=== PATIENT | female | born 1960 | race Caucasian/White ===

== ENCOUNTER 2019-06-05 17:43 | Emergency (ER) | payer BC ==
[~2019-06-05] VITALS: Ht 152.4 cm; Wt 59.1 kg
[~2019-06-05 17:43] MED LIST: NAPR375T PO
[2019-06-05 18:28] LABS: BASOPHILS # (AUTO) 0.1 X10'3 (0-0.2); BASOPHILS % (AUTO) 0.3 % (0-1); EOSINOPHILS # (AUTO) 0.3 X10'3 (0-0.9); EOSINOPHILS % (AUTO) 1.7 % (0-6); HEMATOCRIT 41.9 % (35.0-45.0); LYMPHOCYTES # (AUTO) 5.1 X10'3 (1.1-4.8); LYMPHOCYTES % (AUTO) 30.7 % (21-51); MEAN CORPUSCULAR HEMOGLOBIN 28.1 PG (27.0-31.0); MEAN CORPUSCULAR HGB CONC 33.5 g/dL (33.0-36.5); MEAN CORPUSCULAR VOLUME 83.9 FL (78-98); MEAN PLATELET VOLUME 9.2 FL (7.4-10.4); MONOCYTES # (AUTO) 0.9 X10'3 (0-0.9); MONOCYTES % (AUTO) 5.6 % (2-12); NEUTROPHILS # (AUTO) 10.2 X10'3 (1.8-7.7); NEUTROPHILS % (AUTO) 61.7 % (42-75); PLATELET COUNT 225 X10'3 (140-440); RED BLOOD COUNT 4.99 X10'6 (4.20-5.60); RED CELL DISTRIBUTION WIDTH 14.7 % (11.5-14.5); WHITE BLOOD COUNT 16.5 X10'3 (4.5-11.0)
[2019-06-05 18:31] LABS: ALANINE AMINOTRANSFERASE 11 U/L (12-78); ALKALINE PHOSPHATASE 116 IU/L (46-116); ANION GAP 11 (8-16); ASPARTATE AMINO TRANSFERASE 11 U/L (10-37); BILIRUBIN,TOTAL 0.2 MG/DL (0.1-1.0); BLOOD UREA NITROGEN 8 MG/DL (7-18); BUN/CREATININE RATIO 12.1 (6.6-38.0); CALCIUM 9.1 MG/DL (8.5-10.1); CHLORIDE 107 MMOL/L (99-107); CREATININE 0.66 MG/DL (0.40-0.90); GLUCOSE 102 MG/DL (70-104); POTASSIUM 3.5 MMOL/L (3.5-5.1); SODIUM 142 MMOL/L (135-145); TOTAL CARBON DIOXIDE 24.4 MMOL/L (24-32); eGFR > 90 ML/MIN
[2019-06-05] MEDS ORDERED: acetaminophen 325mg tablet PO ONE (20:45)
[2019-06-05] MEDS ORDERED: ketorolac trometh inj. 60 MG/2 ML VIAL IM ONE (20:45)
[2019-06-05] MEDS ORDERED: HYDR-3965 PO (21:55)
[2019-06-05 21:59] VITALS: BP 126/77
== END 2019-06-05 22:00 | disposition home or self-care (01) ==
LOC: ER 17:44
DX: M25.511 Pain in right shoulder (principal); K21.9 Gastro-esophageal reflux disease without esophagitis; G89.29 Other chronic pain; F41.9 Anxiety disorder, unspecified; F32.9 Major depressive disorder, single episode, unspecified; Z88.0 Allergy status to penicillin; Z88.5 Allergy status to narcotic agent; Z91.040 Latex allergy status; Z79.899 Other long term (current) drug therapy
CPT/HCPCS: 36415; 71045; 73030; 80053; 84145; 84484; 85025; 93005; 96372; 99285; J1885

== ENCOUNTER 2019-06-09 18:46 | Emergency (ER) | payer BC ==
[~2019-06-09] VITALS: Ht 152.4 cm; Wt 59.1 kg
[~2019-06-09 18:46] MED LIST changes: +HYDR-3965 PO
[2019-06-09] MEDS ORDERED: cyclobenzaprine 10mg tablet PO ONE (19:35)
[2019-06-09] MEDS ORDERED: HYDROcodone/acetaminophen 5mg/325mg tablet PO ONE (19:35)
[2019-06-09] MEDS ORDERED: ketorolac tromethamine 15mg/ml inj. IM ONE (19:35)
[2019-06-09] MEDS ORDERED: HYDR-3965 PO (20:42)
[2019-06-09 20:47] VITALS: BP 135/65
== END 2019-06-09 20:50 | disposition home or self-care (01) ==
LOC: ER 18:47
DX: M25.511 Pain in right shoulder (principal); R11.0 Nausea; K21.9 Gastro-esophageal reflux disease without esophagitis; G89.29 Other chronic pain; F41.9 Anxiety disorder, unspecified; F32.9 Major depressive disorder, single episode, unspecified; Z88.0 Allergy status to penicillin; Z88.5 Allergy status to narcotic agent; Z91.040 Latex allergy status; Z79.899 Other long term (current) drug therapy
CPT/HCPCS: 73030; 96372; 99283; J1885

== ENCOUNTER 2020-01-23 11:37 | Emergency (ER) | payer BC ==
[~2020-01-23] VITALS: Ht 152.4 cm; Wt 54.5 kg
[~2020-01-23 11:37] MED LIST changes: -HYDR-3965 PO
[2020-01-23 11:39] VITALS: BP 145/91
[2020-01-23] MEDS ORDERED: LIDOcaine 5% patch TP STA (12:00)
[2020-01-23] MEDS ORDERED: ketorolac tromethamine 15mg/ml inj. IM ONE (12:00)
[2020-01-23] MEDS ORDERED: ondansetron/PF 4mg/2ml inj IV ONE (13:00)
[2020-01-23] MEDS ORDERED: LIDO700A32 TOP (13:02)
[2020-01-23] MEDS ORDERED: IBUP-1984 PO (13:02)
== END 2020-01-23 13:08 | disposition home or self-care (01) ==
LOC: ER 11:37
DX: G89.29 Other chronic pain (principal); F41.9 Anxiety disorder, unspecified; F32.9 Major depressive disorder, single episode, unspecified; Z88.0 Allergy status to penicillin; Z88.5 Allergy status to narcotic agent; Z91.040 Latex allergy status; Z79.899 Other long term (current) drug therapy
CPT/HCPCS: 72070; 96372; 99283; J1885

== ENCOUNTER 2020-01-24 16:16 | Emergency (ER) | payer BC ==
[~2020-01-24] VITALS: Ht 154.9 cm; Wt 60.0 kg
[~2020-01-24 16:16] MED LIST changes: +IBUP-1984 PO; +LIDO700A32 TOP
[2020-01-24 16:23] VITALS: BP 128/76
[2020-01-24] MEDS ORDERED: ketorolac tromethamine 15mg/ml inj. IM ONE (17:40)
== END 2020-01-24 18:35 | disposition home or self-care (01) ==
LOC: ER 16:17
DX: M54.6 Pain in thoracic spine (principal); G89.29 Other chronic pain; F41.9 Anxiety disorder, unspecified; F32.9 Major depressive disorder, single episode, unspecified; Z88.0 Allergy status to penicillin; Z91.040 Latex allergy status
CPT/HCPCS: 72128; 96372; 99284; J1885

== ENCOUNTER 2022-02-05 16:58 | Emergency (ER) | payer BC, MEDICAID ==
[~2022-02-05] VITALS: Ht 152.4 cm; Wt 57.0 kg
[~2022-02-05 16:58] MED LIST changes: -IBUP-1984 PO
[2022-02-05 17:23] VITALS: BP 154/79
[2022-02-05] MEDS ORDERED: LIDOcaine 1% w/EPI 1:100,000 30ml vial (MDV) IJ ONE (18:15)
[2022-02-05] MEDS ORDERED: triamcinolone acetonide 40mg/ml inj IM ONE (18:15)
[2022-02-05] MEDS ORDERED: ORPH100T2 PO (18:46)
== END 2022-02-05 19:45 | disposition home or self-care (01) ==
LOC: ER 17:00
DX: S16.1XXA Strain of muscle, fascia and tendon at neck level, initial encounter (principal); M62.838 Other muscle spasm; M47.812 Spondylosis without myelopathy or radiculopathy, cervical region; K21.9 Gastro-esophageal reflux disease without esophagitis; G89.29 Other chronic pain; M54.50 Low back pain, unspecified; Z88.0 Allergy status to penicillin; Z91.040 Latex allergy status; X58.XXXA Exposure to other specified factors, initial encounter; Y93.89 Activity, other specified; Y92.89 Other specified places as the place of occurrence of the external cause; Y99.8 Other external cause status
CPT/HCPCS: 20552; 99284

== ENCOUNTER 2022-04-30 16:16 | Emergency (ER) | payer MEDICAID ==
[~2022-04-30] VITALS: Ht 149.9 cm; Wt 55.0 kg
[~2022-04-30 16:16] MED LIST changes: +ORPH100T2 PO
[2022-04-30] MEDS ORDERED: orphenadrine citrate 60mg/2ml inj. IM ONE (16:50)
[2022-04-30] MEDS ORDERED: ketorolac trometh inj. 60 MG/2 ML VIAL IM ONE (16:50)
[2022-04-30] MEDS ORDERED: NAPR-56 PO (16:53)
[2022-04-30] MEDS ORDERED: LIDO700A32 TOP (16:53)
[2022-04-30] MEDS ORDERED: ORPH100T2 PO (16:53)
[2022-04-30 17:10] VITALS: BP 144/84
== END 2022-04-30 17:13 | disposition home or self-care (01) ==
LOC: ER 16:17
DX: S46.811A Strain of other muscles, fascia and tendons at shoulder and upper arm level, right arm, initial encounter (principal); M62.830 Muscle spasm of back; K21.9 Gastro-esophageal reflux disease without esophagitis; G89.29 Other chronic pain; M54.50 Low back pain, unspecified; Z88.0 Allergy status to penicillin; Z91.040 Latex allergy status; X58.XXXA Exposure to other specified factors, initial encounter; Y93.42 Activity, yoga; Y92.89 Other specified places as the place of occurrence of the external cause; Y99.8 Other external cause status
CPT/HCPCS: 71045; 96372; 99284; J1885; J2360